=== PATIENT | female | born 1975 | race Caucasian/White ===

== ENCOUNTER 2016-10-09 10:29 | Emergency (ER) | payer OTHER ==
[2016-10-09 10:54] LABS: APPEARANCE CLEAR (CLEAR); BILIRUBIN NEGATIVE (NEGATIVE); COLOR YELLOW (YELLOW); GLUCOSE NEGATIVE (NEGATIVE); KETONE NEGATIVE (NEGATIVE); LEUKOCYTE ESTERASE NEGATIVE (NEGATIVE); NITRITE NEGATIVE (NEGATIVE); PROTEIN NEGATIVE (NEGATIVE); UROBILINOGEN NORMAL (NORMAL)
[2016-10-09 10:55] LABS: BASOPHILS 0.5 % (0-2); EOSINOPHILS 4.6 % (0-7); HEMATOCRIT 39.4 % (36.0-48.0); HEMOGLOBIN 13.4 g/dL (12-16); LYMPHOCYTES 37.2 % (15-50); MCV 88.3 fL (80.0-100.0); MEAN PLATELET VOLUME 9.8 fL (7.4-10.4); MONOCYTES 4.1 % (2-11); NEUTROPHILS 53.6 % (40-80); PLATELET COUNT 199 10x3/uL (130-400); RBC 4.46 10x6/uL (4.00-5.40); WBC 6.1 10x3/uL (4.8-10.8)
[2016-10-09 10:58] LABS: HCG URINE NEGATIVE (NEGATIVE)
[2016-10-09 11:03] LABS: UDS - AMPHET NEGATIVE QUAL (NEGATIVE); UDS - BARB NEGATIVE QUAL (NEGATIVE); UDS - BENZO NEGATIVE QUAL (NEGATIVE); UDS - COCAINE NEGATIVE QUAL (NEGATIVE); UDS - METH NEGATIVE QUAL (NEGATIVE); UDS - OPIATE NEGATIVE QUAL (NEGATIVE); UDS - PCP NEGATIVE QUAL (NEGATIVE); UDS - THC NEGATIVE QUAL (NEGATIVE)
[2016-10-09 11:20] LABS: ALBUMIN 3.6 g/dL (3.4-5.0); ALKALINE PHOSPHATASE 50 U/L (46-116); ALT (SGPT) 21 U/L (10-68); CALC OSMOLALITY 276 mosm/kg (275-300); CALCIUM 8.6 mg/dL (8.5-10.1); CARBON DIOXIDE 25.7 mmol/L (21.0-32.0); CHLORIDE - SERUM 106 mmol/L (98-107); CREATININE - SERUM 0.8 mg/dL (0.6-1.3); GLUCOSE 102 mg/dL (74-106); POTASSIUM - SERUM 4.2 mmol/L (3.5-5.1); SODIUM 140 mmol/L (136-145); UREA NITROGEN 8 mg/dL (7-18); eGFR NON AFRICAN AMERICAN 85 mL/min (90-120)
== END 2016-10-09 18:28 | disposition home or self-care (01) ==
LOC: D.ER 10:29
PROVIDERS: Emergency Medicine
DX: F32.9 Major depressive disorder, single episode, unspecified (principal)

== ENCOUNTER 2017-08-30 22:17 | Emergency (ER) | payer OTHER ==
[~2017-08-30] VITALS: Ht 175.3 cm; Wt 75.0 kg
[2017-08-30 22:33] VITALS: Ht 175.3 cm; Wt 75.0 kg
[2017-08-30] MEDS ORDERED: SUMATRIPTAN SUC25 MG (22:41)
[2017-08-30] MEDS ORDERED: ZOFRAN4 MG (22:41)
[2017-08-30] MEDS ORDERED: TOPAMAX50 MG PO (22:41)
[2017-08-30 23:40] LABS: HEMOGLOBIN 12.7 g/dL (12-16); LYMPHOCYTES 32.2 % (15-50); MCH 29.2 pg (26.0-34.0); MCHC 34.3 g/dL (31.0-37.0); MCV 85.1 fL (80.0-100.0); MEAN PLATELET VOLUME 10.3 fL (7.4-10.4); NEUTROPHILS 60.9 % (40-80); RBC 4.35 10x6/uL (4.00-5.40); RDW 12.2 % (11.5-14.5); WBC 5.5 10x3/uL (4.8-10.8)
[2017-08-30 23:42] LABS: PLATELET COUNT 155 10x3/uL (130-400)
[2017-08-30 23:55] LABS: ALBUMIN 3.6 g/dL (3.4-5.0); ANION GAP 10.6 mmol/L (8-16); BILIRUBIN - TOTAL 0.2 mg/dL (0.2-1.3); CALCIUM 8.6 mg/dL (8.5-10.1); CARBON DIOXIDE 27.8 mmol/L (21.0-32.0); POTASSIUM - SERUM 3.4 mmol/L (3.5-5.1); PROTEIN - SERUM 6.8 g/dL (6.4-8.2)
[2017-08-31 01:47] VITALS: BP 121/64
== END 2017-08-31 01:53 | disposition home or self-care (01) ==
LOC: D.ER 22:17
PROVIDERS: Family Medicine
DX: G43.909 Migraine, unspecified, not intractable, without status migrainosus (principal); R11.2 Nausea with vomiting, unspecified; F17.200 Nicotine dependence, unspecified, uncomplicated

== ENCOUNTER → 2018-02-16 09:09 | Outpatient (CLI) | payer MEDICAID ==
[2017-08-30 22:33] VITALS: BMI 24.4
--- NOTE | ~2018-02-16 | ST ---
PATIENT:ALEXANDRA GUPTA MEDICAL RECORD: [id number] SEX: F LOCATION:[facility] ORDER #: ADMISSION DATE: 02/16/18 AGE OF PATIENT: 42 REFERRING PHYSICIAN: INTERPRETING PHYSICIAN: SHIRA JOYCE MD DATE OF SERVICE: 02/16/2018 PROCEDURE: Nuclear stress test. INDICATION: Chest pain compatible with angina. She was exercised on standard Samy protocol for 10 minutes with 31.0 mCi injected at peak stress and 10.0 mCi was injected previously for rest images. FINDINGS: Gated SPECT reveals preserved ejection fraction at 67% with good wall motion, thickening, and brightening throughout all segments. SPECT IMAGING: Cardiolite was used as myocardial perfusion agent. There is homogeneous uptake throughout all segments at rest and stress with no evidence of inducible ischemia or previous infarction. Gated SPECT reveals preserved ejection fraction at greater than 60%. OVERALL IMPRESSION: Normal nuclear stress test. No evidence of inducible ischemia or previous infarction. Gated SPECT reveals preserved ejection fraction greater than 60%. In this patient with ongoing symptomatology, the current scan does not suggest presence of hemodynamically significant coronary artery disease. TRANSINT:[id number] Voice Confirmation ID: [id number] DOCUMENT ID: [id number] SHIRA JOYCE MD at 1704 CC: [id number] DICTATION DATE: 02/16/18 1400 DYNAMOMETER MECHANIC: 02/16/18 1619 DEP CLI 02/16/[address] [id number]
[~2018-02-16 09:09] MED LIST: SUMATRIPTAN SUC25 MG; TOPAMAX50 MG PO; ZOFRAN4 MG
== END | disposition home or self-care (01) ==
LOC: D.HCCARDIO 09:09
DX: R07.9 Chest pain, unspecified (principal)

== ENCOUNTER → 2018-03-09 22:18 | Outpatient (CLI) | payer MEDICAID ==
[2017-08-30 22:33] VITALS: BMI 24.4
== END | disposition home or self-care (01) ==
LOC: D.MAMMO 10:15
DX: Z12.31 Encounter for screening mammogram for malignant neoplasm of breast (principal)